=== PATIENT | male | born 1945 | race Caucasian/White ===

== ENCOUNTER 2017-11-02 06:50 | Day surgery (SDC) | payer MEDICARE, OTHER ==
[~2017-11-02] VITALS: Ht 177.8 cm; Wt 70.8 kg
[~2017-11-02 06:50] MED LIST: MULTIVITAMINS1 EAC8 PO; NITROSTAT0.4 MG SL; PERCOCET 7.5-31 EACH PO
--- NOTE | 2017-11-02 09:35 | NUR ---
PT WAS ALERT, ORIENTED AND SUPPORTED BY A FRIEND. HE SEEMED RELAXED, HE DID MENTIONED THAT HE LIKES TO BE INFORMED-WANTS TO KNOW WHAT IS GOING ON. I OUTLINED FOR HIM WHAT HE COULD EXPECT FOR TODAY. HE SEEMED PLEASED, PT NEEDED TO VOID, CONTACTED RN FOR HIM. EXTENDED A BLESSING, WILL FOLLOW NEEDED
--- NOTE | 2017-11-02 11:08 | NUR ---
11/02/17 1108 Danielle Catalan 1104 PATIENT ARRIVES TO PACU, AWAKE OFF/ON, BUT DROWSY. RESP EVEN AND UNLABORED, MASK AT 6 LITERS. PATIENT DENIES PAIN.
[2017-11-02] MEDS ORDERED: IBUPROFEN600 MG PO (11:18)
[2017-11-02] MEDS ORDERED: MAPAP325 MG PO (11:19)
[2017-11-02] MEDS ORDERED: OXYCODON-ACETA1 EAC2 PO (11:19)
--- NOTE | 2017-11-04 12:42 | OR ---
[facility] [address] [place], [place] [address] Signed DATE OF OPERATION: 11/02/2017 SURGEON: Lorne Jamison MD PREOPERATIVE DIAGNOSIS: Right inguinal hernia. POSTOPERATIVE DIAGNOSIS: Right direct inguinal hernia. PROCEDURE PERFORMED: Repair of right direct inguinal hernia with implantation of Prolene mesh (underlay technique). ANESTHESIA: General, LMA, Maurizio Tom, GRINDER MACHINE KNIFE SETTER, and local 20 mL of 0.25% Marcaine with epinephrine. INDICATIONS FOR PROCEDURE: This 72-year-old white man is a patient Dr. Brad Christian and has undergone left inguinal hernia by me three years ago in 2014. He has since developed a right inguinal hernia, which is reducible. 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 He has some urinary hesitancy, for which I have recommended Flomax, but which he has declined. He was admitted at this time to undergo right inguinal hernia repair. Understands the risks of bleeding, infection, recurrence, and so on. FINDINGS: A direct type hernia was noted. It was moderate in size. The cord structures were normal. An ilioinguinal nerve branch was identified and preserved. Repair was accomplished by implantation of Prolene mesh in the properitoneal space. There was no hernia sac excised. DESCRIPTION OF PROCEDURE: The patient was brought to the operating room, given a general anesthetic by LMA technique. Preoperative antibiotic Ancef was given. Sequential compression device stockings were used and heparin subcutaneously administered. The lower abdomen was clipped and prepared with chlorhexidine solution and draped sterilely. A small incision was made along the line of skin tension cephalad to the right inguinal crease and dissection was carried through subcutaneous tissue with blunt and electrocautery dissection. The external oblique was identified and incised along its fibers revealing the underlying cord. An ilioinguinal nerve branch was dissected free from the Electronically Signed By: LORNE JAMISON MD 11/04/17 1242 PATIENT NAME: ADA ESPAÑA OPERATIVE REPORT DATE OF : 45 REPORT #: [id number] PHYSICIAN: LORNE JAMISON MD PCP: NO PRIMARY CARE PHYSICIAN REPORT IS CONFIDENTIAL AND NOT TO BE RELEASED WITHOUT AUTHORIZATION [facility] [address] [place], [place] [address] Signed cremasteric muscle fibers and reflected around the external oblique. Cord was mobilized from the floor with blunt and electrocautery dissection and encircled with a Manquin drain. Quite obvious was a hernia defect, which was essentially a direct defect. The hernia was freed from the cremasteric muscle fibers of the cord and the cord retracted laterally. It was a broad-based defect in the lateral 3rd of the inguinal canal. The attenuated fibers of the fascia with transversalis were incised with electrocautery allowing for blunt dissection and replacement of the herniated area to the properitoneal space. A segment of Prolene mesh was cut to an elliptical configuration and secured in an underlay technique with interrupted #2-0 Prolene sutures. Defect was cut in the graft to accommodate the cord and the tails of the graft were secured laterally without encumbrance cord structures or the ilioinguinal nerve branch. A 20 mL of 0.25% Marcaine with epinephrine was injected locally. The cord was placed into the canal as was the ilioinguinal nerve. The external oblique was reapproximated with running #2-0 Vicryl suture. Mimi's layer was reapproximated with interrupted #2-0 Vicryl and skin was closed with running subcuticular #3-0 Vicryl. Steri-Strips were applied as was a Mepilex silver sponge dressing and an OpSite. The patient was ultimately extubated and transferred to recovery room in good condition and suffered no complication. Sponge, needle, and instrument counts reported as correct x3. MD NAHOMI Vaqsuez/MODL /[id number] cc: Bebeto Christian MD Copies: Bebeto CHRISTIAN MD ~ Electronically Signed By: LORNE JAMISON MD 11/04/17 1242 PATIENT NAME: ADA ESPAÑA OPERATIVE REPORT DATE OF : 45 REPORT #: [id number] PHYSICIAN: LORNE JAMISON MD PCP: NO PRIMARY CARE PHYSICIAN REPORT IS CONFIDENTIAL AND NOT TO BE RELEASED WITHOUT AUTHORIZATION
== END 2017-11-02 12:40 | disposition home or self-care (01) ==
LOC: DS 06:50
PROVIDERS: Surgery
PROC: 0YU50JZ Supplement Right Inguinal Region with Synthetic Substitute, Open Approach (ICD-10-PCS; principal; 2017-11-02 08:45)
DX: K40.90 Unilateral inguinal hernia, without obstruction or gangrene, not specified as recurrent (principal); R39.11 Hesitancy of micturition; E78.5 Hyperlipidemia, unspecified; M10.9 Gout, unspecified; F32.9 Major depressive disorder, single episode, unspecified; I10 Essential (primary) hypertension; I25.118 Atherosclerotic heart disease of native coronary artery with other forms of angina pectoris; I25.2 Old myocardial infarction
CPT/HCPCS: 00830; C1781; J0690; J1644; J2250; J2370; J2405; J2704; J3010

== ENCOUNTER 2019-05-29 08:55 | Day surgery (SDC) | payer MEDICARE, OTHER ==
[~2019-05-29] VITALS: Ht 177.8 cm; Wt 74.8 kg
--- NOTE | ~2019-05-29 | OR ---
[facility] [address] [place], [place] [address] Draft DATE OF OPERATION: 05/29/2019 SURGEON: Kiara Yates MD PREOPERATIVE DIAGNOSIS: Carpal tunnel syndrome, right. POSTOPERATIVE DIAGNOSIS: Carpal tunnel syndrome, right. PROCEDURE PERFORMED: Right carpal tunnel release. ANESTHESIA: Christin block. ISOBUTYLENE OPERATOR CHIEF: Myranda Goetz PA-C. Myranda was present and critical for all portions of the procedure. TOURNIQUET TIME: 20 minutes. BRIEF HISTORY: Ricci is a 74-year-old gentleman with significant carpal tunnel in both wrists. Risks and benefits of operative treatment were discussed with him. He elected to proceed. DESCRIPTION OF PROCEDURE: Once consent was obtained, he was taken to the operating room. After adequate anesthesia, he was placed on operating table. All downside pressure points well padded. The right arm was prepped and draped in a standard sterile fashion. The carpal tunnel was approached through a 1.5 cm incision in the distal wrist crease. This was carried through skin and subcutaneous tissue. The transverse carpal ligament was identified under loupe magnification and was dissected free of overlying soft tissue proximally and distally. It was then released using the tenotomy scissors and released proximally 1 cm and distally to the distal extent. This was then palpated using the [place] elevator and found to be completely released. The wound was copiously irrigated with normal saline, closed with 3-0 nylon. A 6 mL of 0.25% plain Marcaine were injected into the subcutaneous tissue postoperatively. The wound was then dressed with bacitracin, Adaptic, 4 x 8's, and gauze. He tolerated the procedure well. All sponge, needle, and PATIENT NAME: RICCI ESPAÑA OPERATIVE REPORT DATE OF : 45 REPORT #: [id number] PHYSICIAN: KIARA YATES MD PCP: SHA WEEKS MD REPORT IS CONFIDENTIAL AND NOT TO BE RELEASED WITHOUT AUTHORIZATION [address] [place], [place] [address] Draft instrument counts were correct. Kiara Yates MD BA/MANUEL /[id number] Copies: ~ PATIENT NAME: RICCI ESPAÑA OPERATIVE REPORT DATE OF : 45 REPORT #: [id number] PHYSICIAN: KIARA YATES MD PCP: SHA WEEKS MD REPORT IS CONFIDENTIAL AND NOT TO BE RELEASED WITHOUT AUTHORIZATION
[~2019-05-29 08:55] MED LIST changes: +GABAPENTIN300 MG PO; +IBUPROFEN600 MG PO; +MAPAP325 MG PO; +MOBIC15 MG PO; +OXYCODON-ACETA1 EAC2 PO
[2019-05-29] MEDS ORDERED: TRAMADOL HCL50 MG PO (10:54)
--- NOTE | 2019-05-29 11:11 | NUR ---
05/29/19 1111 Edwige Pal 1059-PATIENT ARRIVED TO PACU ON RA AWAKE DENIES PAIN OR NAUSEA. SR. RR EVEN. PATIENT ABLE TO MOVE RIGHT HAND DRESSING CDI ABLE TO WIGGLE FINGERS, WARM GOOD CAP REFILL WEI PULSE. ELEVATED ON PILLOW AND ICE APPLIED. PATIENT DENIES PAIN OR NAUSEA. 1110-PATIENT AWAKE DENIES PAIN OR NAUSEA. RA 100%
== END 2019-05-29 12:05 | disposition home or self-care (01) ==
LOC: OPS 08:55 → DS 08:55 → OPS 11:00 → DS 13:00 → OPS 13:00
PROVIDERS: Specialist
PROC: 01N50ZZ Release Median Nerve, Open Approach (ICD-10-PCS; principal; 2019-05-29 11:45)
DX: G56.01 Carpal tunnel syndrome, right upper limb (principal); Z79.899 Other long term (current) drug therapy; Z88.8 Allergy status to other drugs, medicaments and biological substances; Z79.1 Long term (current) use of non-steroidal anti-inflammatories (NSAID)
CPT/HCPCS: J0690; J2250; J2704; J7121